=== PATIENT | female | born 1990 | race Hispanic/Latino ===

== ENCOUNTER 2017-10-18 21:21 | Emergency (ER) | payer OTHER ==
[2017-10-18 21:23] VITALS: BMI 22.8
[2017-10-18 21:40] VITALS: RESP 18; TEMP 98.2
--- NOTE | 2017-10-18 21:52 | ED PDOC ---
Arrival/HPI - General Chief Complaint: ENT Problem Time Seen by Provider: 10/18/17 21:29 Historian: Patient - History of Present Illness Narrative History of Present Illness (Text): 10/18/17 21:50 Zane Traylor is a 27 year old female, denies any significant past medical history, who presents to the Emergency department complaining of foreign body sensation in her throat. Patient states she was eating fajitas earlier tonight and began experiencing throat irritation/foreign body sensation. Patient states she was able to eat and tolerate PO fluids without difficulty. Patient reports she has experienced similar sensation in the past for which she was scoped/ evaluated by ENT and told her symptoms were secondary to acid reflux. Patient denies any vomiting, abdominal pain, fever, chills, or any other complaints. Symptom Onset: Gradual Symptom Course: Unchanged Activities at Onset: Light, Eating Context: Home Past Medical History - Provider Review Nursing Documentation Reviewed: Yes - Infectious Disease Hx of Infectious Diseases: None - Musculoskeletal/Rheumatological Hx Falls: No - Psychiatric Hx Substance Use: No - Surgical History Other/Comment: cyst removed from tailbone. - Suicidal Assessment Feels Threatened In Home Enviroment: No Family/Social History - Physician Review Nursing Documentation Reviewed: Yes Family/Social History: Unknown Family HX Smoking Status: Never Smoked Hx Alcohol Use: Yes (socially) Hx Substance Use: No Hx Substance Use Treatment: No Allergies/Home Meds Allergies/Adverse Reactions: Allergies Sulfa (Sulfonamide Antibiotics) Allergy (Verified 10/18/17 21:41) ANAPHYLAXIS Home Medications: Home Meds Medication Instructions Recorded Confirmed No Known Home Med 10/18/17 10/18/17 Review of Systems - Physician Review All systems were reviewed & negative as marked: Yes - Review of Systems Constitutional: Normal. absent: Fevers Eyes: Normal ENT: Other (+throat irritation) Respiratory: Normal. absent: SOB, Cough Cardiovascular: Normal. absent: Chest Pain Gastrointestinal: Normal. absent: Abdominal Pain, Diarrhea, Nausea, Vomiting Genitourinary Female: Normal. absent: Dysuria, Frequency, Hematuria, Urine Output Changes Musculoskeletal: Normal. absent: Back Pain, Neck Pain Skin: Normal. absent: Rash Neurological: Normal. absent: Headache, Dizziness Endocrine: Normal Hemo/Lymphatic: Normal Psychiatric: Normal Physical Exam Vital Signs Reviewed: Yes Vital Signs Temp Pulse Resp BP Pulse Ox 10/19/17 01:43 86 18 117/69 99 10/18/17 23:23 83 18 127/60 100 10/18/17 21:35 98.2 F 98 H 18 136/90 98 Temperature: Afebrile Blood Pressure: Normal Pulse: Regular Respiratory Rate: Normal Appearance: Positive for: Well-Appearing, Non-Toxic, Comfortable, Other ( Speaking full sentences) Pain Distress: None Mental Status: Positive for: Alert and Oriented X 3 - Systems Exam Head: Present: Atraumatic, Normocephalic Pupils: Present: PERRL Extroacular Muscles: Present: EOMI Conjunctiva: Present: Normal Ears: Present: Normal, NORMAL TM, Normal Canal. No: Erythema Mouth: Present: Moist Mucous Membranes Pharnyx: Present: Normal, Other (No foreign body sensation visualized). No: ERYTHEMA, EXUDATE, TONSILS ENLARGED, Peritonsilar Swelling, Uvular Deviation, Muffled/Hoarse Voice, Strider, Soft Palate/Uvular Edema Nose (External): Present: Atraumatic Nose (Internal): Present: Normal Inspection Neck: Present: Normal Range of Motion. No: Meningeal Signs, MIDLINE TENDERNESS , Paraspinal Tenderness Respiratory/Chest: Present: Clear to Auscultation, Good Air Exchange. No: Respiratory Distress, Accessory Muscle Use Cardiovascular: Present: Regular Rate and Rhythm, Normal S1, S2. No: Murmurs Abdomen: No: Tenderness, Distention, Peritoneal Signs Back: Present: Normal Inspection. No: CVA Tenderness, Midline Tenderness, Paraspinal Tenderness Upper Extremity: Present: Normal Inspection. No: Cyanosis, Edema Lower Extremity: Present: Normal Inspection. No: Edema Neurological: Present: GCS=15, CN II-XII Intact, Speech Normal Skin: Present: Warm, Dry, Normal Color. No: Rashes Psychiatric: Present: Alert, Oriented x 3, Normal Insight, Normal Concentration Medical Decision Making ED Course and Treatment: 10/18/17 21:50 Impression: 27 year old female complaining of throat irritation/foreign body sensation after eating fajitas today. Plan: -- Reassess and disposition Progress Notes: Pt scoped previously for similar complaint by ENT, told symptoms were secondary to acid reflux. Pt speaking full sentence, lungs clear to auscultation, and pt is able to tolerate PO fluids without difficulty. Pt denies any vomiting. Pt was offered CT but refused. Pt instructed to f/u with PMD/ENT this week or return to ER if she develops any new/worsening symptoms. 10/18/17 22:28 Pt prior to discharge now states she is willing to get CT. CT Neck and Chest Soft Tissues ordered. 10/19/17 01:57 Reviewed radiology, CT Neck shows: The sinuses are clear. The airway is patent. A normal epiglottis is identified. The visualized portions of the esophagus appear normal without dilation or radiopaque foreign body. There is no periesophageal extraluminal air identified. The soft tissue structures of the neck appear grossly normal. Small lymph nodes are noted throughout the neck bilaterally. The osseous structures are normal. Impression: No acute findings. CT Chest shows: The visualized portions of the esophagus appear normal without dilation or radiopaque foreign body. There is no periesophageal extraluminal air identified. The trachea and bronchi appear normal. The lungs are clear. There is no aortic aneurysm. There is probable residual thymic tissue in the anterior mediastinum. IMPRESSION: No acute findings. Please note that evaluation of non-radiopaque esophageal foreign body would be better identified with fluoroscopy contrast study. 10/19/17 03:[address] findings took po in nad. advise soutpt fu for further diagnostic w/u - RAD Interpretation Radiology Orders: 10/18/17 22:28 NECK & CHEST W/O CONTRAST [CT] Stat Ship Mate: Radiologist - Scribe Statement The provider has reviewed the documentation as recorded by the Porsche Gonsalez Provider Scribe Attestation: All medical record entries made by the [employer] were at my direction and personally dictated by me. I have reviewed the chart and agree that the record accurately reflects my personal performance of the history, physical exam, medical decision making, and the department course for this patient. I have also personally directed, reviewed, and agree with the discharge instructions and disposition. Disposition/Present on Arrival - Present on Arrival Any Indicators Present on Arrival: No History of DVT/PE: No History of Uncontrolled Diabetes: No Urinary Catheter: No History of Decub. Ulcer: No History Surgical Site Infection Following: None - Disposition Have Diagnosis and Disposition been Completed?: Yes Diagnosis: Dysphagia Disposition: HOME/ ROUTINE Disposition Time: 21:53 Condition: STABLE Discharge Instructions (ExitCare): Dysphagia Additional Instructions: please follow up with your doctor. you may require more testing as an outpatient. please see specialist. s Referrals: Chacorta Richardson DO [Staff Provider] - Follow up with primary Eric Mace MD [Staff Provider] - Follow up with primary Forms: [email or web address] (Macanese)
[2017-10-19 01:44] VITALS: BP 117/69; PULSE 86; O2SAT 99
--- NOTE | 2017-10-19 01:55 | CT ---
EXAM: CT Neck Without Intravenous Contrast CLINICAL HISTORY: 27 years old, female; Signs and symptoms; Other: Pt states feels like someting stuck in throat; Dysphagia / difficulty swallowing; Additional info: Foreign body sensation/dysphagia TECHNIQUE: Axial computed tomography images of the neck without intravenous contrast. All CT scans at this facility use one or more dose reduction techniques, viz.: automated exposure control; ma/kV adjustment per patient size (including targeted exams where dose is matched to indication; i.e. head); or iterative reconstruction technique. Coronal and sagittal reformatted images were created and reviewed. COMPARISON: No relevant prior studies available FINDINGS: The sinuses are clear. The airway is patent. A normal epiglottis is identified. The visualized portions of the esophagus appear normal without dilation or radiopaque foreign body. There is no periesophageal extraluminal air identified. The soft tissue structures of the neck appear grossly normal. Small lymph nodes are noted throughout the neck bilaterally. The osseous structures are normal. Impression: No acute findings. EXAM: CT Chest Without Intravenous Contrast EXAM DATE/TIME: 10/18/2017 10:28 PM CLINICAL HISTORY: 27 years old, female; Signs and symptoms; Other: Pt states feels like someting stuck in throat; Dysphagia / difficulty swallowing; Additional info: Foreign body sensation/dysphagia TECHNIQUE: Axial computed tomography images of the chest without intravenous contrast. All CT scans at this facility use one or more dose reduction techniques, viz.: automated exposure control; ma/kV adjustment per patient size (including targeted exams where dose is matched to indication; i.e. head); or iterative reconstruction technique. Coronal and sagittal reformatted images were created and reviewed. COMPARISON: No relevant prior studies available. FINDINGS: The visualized portions of the esophagus appear normal without dilation or radiopaque foreign body. There is no periesophageal extraluminal air identified. The trachea and bronchi appear normal. The lungs are clear. There is no aortic aneurysm. There is probable residual thymic tissue in the anterior mediastinum. IMPRESSION: No acute findings. Please note that evaluation of non-radiopaque esophageal foreign body would be better identified with fluoroscopy contrast study.
== END 2017-10-19 02:03 | disposition home or self-care (01) ==
LOC: ED 21:21
DX: R13.10 Dysphagia, unspecified (principal)